=== PATIENT | female | born 1995 | race Two or more races ===

== ENCOUNTER 2021-02-19 09:45 | Emergency (ER) | payer BC, OTHER, MEDICAID ==
[~2021-02-19] VITALS: Ht 162.6 cm; Wt 73.0 kg
[2021-02-19] MEDS ORDERED: LIDOCAINE HCL/PF 1% 10 MG/ML 5ML VIAL INFIL ONE (10:15)
[2021-02-19] MEDS ORDERED: BACITRACIN ZINC OINT UDPKT TOP ONE (10:15)
[2021-02-19] MEDS ORDERED: CEPH500T MT (11:18)
[2021-02-19] MEDS ORDERED: P20 MT (11:19)
[2021-02-19] MEDS ORDERED: LIDOCAINE/EPINEPHR/TETRACAINE 3ML TP ONE ×2 (11:30→11:45)
[2021-02-19] MEDS ORDERED: LIDOCAINE/PRILOCAINE CREAM 5 GM TUBE TOP SCH (11:45)
[2021-02-19 12:24] VITALS: BP 100/70
== END 2021-02-19 12:26 | disposition home or self-care (01) ==
LOC: ER 09:45
DX: L03.031 Cellulitis of right toe (principal); R21 Rash and other nonspecific skin eruption
CPT/HCPCS: 10060; 81025; 99283; J3490; Z7610

== ENCOUNTER 2024-01-05 18:30 | Emergency (ER) | payer OTHER ==
[~2024-01-05] VITALS: Ht 162.6 cm; Wt 75.5 kg
[~2024-01-05 18:30] MED LIST: CEPH500T MT; P20 MT
[2024-01-05 18:33] VITALS: O2SAT 98
[2024-01-05] MEDS ORDERED: ONDANSETRON HCL 4MG TABLET PO ONE (19:15)
[2024-01-05] MEDS ORDERED: ACETAMINOPHEN 325MG TABLET PO ONE (19:15)
[2024-01-05 19:20] LABS: CLARITY URINE CLOUDY (CLEAR); COLOR URINE YELLOW (YELLOW); GLUCOSE URINE NEGATIVE (NEGATIVE); KETONES URINE TRACE (NEGATIVE); LEUKOCYTE ESTERASE URINE NEGATIVE (NEGATIVE); NITRITE URINE NEGATIVE (NEGATIVE); OCCULT BLOOD URINE NEGATIVE (NEGATIVE); PH URINE 7.5 (4.5-8.0); PROTEIN URINE TRACE (NEGATIVE); SPECIFIC GRAVITY URINE 1.041 (1.005-1.030)
[2024-01-05 20:04] LABS: BACTERIA URINE 1+; RBC URINE 0-2 /hpf (0-2); SQUAMOUS EPITHELIAL CELL URINE 2+ /lpf (RARE/1+)
[2024-01-05 21:05] LABS: BASOPHILS % 0.3 % (0.0-2.0); EOSINOPHILS % 0.2 % (0.0-5.0); HEMATOCRIT. 38.3 % (36.0-48.0); HEMOGLOBIN. 13.2 g/dL (12.0-16.0); LYMPHOCYTES % 9.6 % (20.0-50.0); MEAN CORPUSCULAR HEMOGLOBIN 33.2 pg (28.0-32.0); MEAN CORPUSCULAR HGB CONC 34.4 g/dL (31.0-37.0); MEAN CORPUSCULAR VOLUME 96.7 fL (81.0-99.0); MONOCYTES % 10.2 % (2.0-8.0); NEUTROPHILS % 79.7 % (40.0-76.0); PLATELET 171 x1000/uL (130-400); RED BLOOD CELL COUNT 3.96 mill/uL (4.2-5.4); RED CELL DISTRIBUTION WIDTH 11.6 % (11.6-14.6); WHITE BLOOD COUNT 6.8 x1000/uL (4.5-11.0)
[2024-01-05 21:07] LABS: CARBON DIOXIDE 26 mEq/L (21-32); CHLORIDE 104 mEq/L (98-107); POTASSIUM 3.4 mEq/L (3.5-5.1); SODIUM 138 mEq/L (136-145)
[2024-01-05 21:08] LABS: CALCIUM 8.7 mg/dL (8.7-10.4)
[2024-01-05 21:13] LABS: CREATININE 0.7 mg/dL (0.6-1.0); GLUCOSE 100 mg/dL (70-105); UREA NITROGEN BLOOD 14 mg/dL (9-23)
[2024-01-05] MEDS ORDERED: FAMO-135 MT (21:16)
[2024-01-05] MEDS: ACETAMINOPHEN 325MG TABLET PO NR (21:23)
[2024-01-05] MEDS: ONDANSETRON HCL 4MG TABLET PO NR (21:24)
[2024-01-05 21:41] VITALS: BP 101/64; PULSE 70; RESP 16; TEMP 37.28076; O2SAT 100
== END 2024-01-05 21:51 | disposition home or self-care (01) ==
LOC: ER 18:30
DX: A08.4 Viral intestinal infection, unspecified (principal); Z20.822 Contact with and (suspected) exposure to COVID-19
CPT/HCPCS: 99284; 76705; 87426; 80048; 81003; 81025; 85025; 36415; Q0162

== ENCOUNTER 2024-04-25 10:05 | Emergency (ER) | payer OTHER, MEDICAID ==
[~2024-04-25] VITALS: Ht 162.6 cm; Wt 73.0 kg
[~2024-04-25 10:05] MED LIST changes: +FAMO-135 MT
[2024-04-25 10:09] VITALS: BP 112/51; PULSE 73; RESP 18; TEMP 36.78072; O2SAT 98
[2024-04-25] MEDS ORDERED: CIPHCO RIGHT EAR (10:50)
[2024-04-25] MEDS ORDERED: OFLO5DRO4 RIGHT EAR (12:08)
== END 2024-04-25 10:55 | disposition home or self-care (01) ==
LOC: ER 10:18
DX: H60.91 Unspecified otitis externa, right ear (principal)
CPT/HCPCS: 99283